=== PATIENT | female | born 1940 | race Caucasian/White ===

== ENCOUNTER 2022-01-13 02:52 | Emergency (ER) | payer OTHER, MEDICAID ==
[2022-01-13 02:53] VITALS: BP_SYST 96
--- NOTE | 2022-01-13 02:58 | NUR ---
PATIENT TO BED 7, PLACED ON MONITOR, DR. MULLINS AT BEDSIDE.
--- NOTE | 2022-01-13 03:00 | NUR ---
Pt to bed [facility] via [facility] from [facility] w/ c/o fall x 3 days ago w/ posterior head pain. Minor bruising noted to back of head. Pt states pain 4/10. Pt denies LOC, denies N/V, denies dizziness. Normal skin color for ethnicity. Respirations even and unlabored. Pt is AOx3 GCS 14 at baseline. Pt placed on classroom monitor and pulse oximetry. Side rails up. Bed in low position. Wheels locked.
[2022-01-13 04:24] VITALS: BP_SYST 112
--- NOTE | 2022-01-13 04:24 | NUR ---
Patient given written and verbal discharge instructions and verbalizes understanding. ER MD discussed with patient the results and treatment provided. Patient in stable condition. ID arm band removed. Rx of given. Patient educated on pain management. Pain Scale 0/10. Opportunity for questions provided and answered.
== END 2022-01-13 04:24 | disposition home or self-care (01) ==
LOC: SED 02:52
DX: S00.03XA Contusion of scalp, initial encounter (principal); E11.9 Type 2 diabetes mellitus without complications; I10 Essential (primary) hypertension; W19.XXXA Unspecified fall, initial encounter; Y93.89 Activity, other specified; Y92.89 Other specified places as the place of occurrence of the external cause; Y99.8 Other external cause status
CPT/HCPCS: 70450-TC; 76376; 99284